=== PATIENT | female | born 1985 | race Caucasian/White ===

== ENCOUNTER 2017-10-19 20:08 | Emergency (ER) | payer MEDICAID ==
[2017-10-19 20:25] VITALS: BP 113/86
[2017-10-19] MEDS ORDERED: TETANUS/DIPHTHERIA/PERTUSSIS 0.5 ML SYRINGE IM ONE (21:18)
[2017-10-19] MEDS ORDERED: LIDOCAINE 1% 2 ML VIAL SUBQ STA (21:32)
--- NOTE | 2017-10-19 21:56 | ED Physician Documentation ---
PD HPI UPPER EXT INJURY - Stated complaint Stated Complaint: LT HAND LAC - Chief complaint Chief Complaint: Laceration - History obtained from History obtained from: Patient - History of Present Illness Location: Left, Hand Type of injury: Laceration Where injury occurred: Home Timing - onset: How many hours ago (1) Timing - duration: Hours (1) Pain level max: 3 Pain level now: 3 Improved by: Rest Worsened by: Moving, Palpating Associated symptoms: No: Weakness, Numbness, Tingling - Additonal information Additional information: Patient is right-handed. She was using her hands to push down on the trash tonight when she sliced her hand on a aluminum can. Unknown last tetanus. Review of Systems : denies: Now EGA Neurologic: denies: Numbness PD PAST MEDICAL HISTORY - Past Medical History Past Medical History: Yes Neuro: Headache/migraine Endocrine/Autoimmune: HyPOthyroidism - Past Surgical History Past Surgical History: No - Present Medications Home Medications: Ambulatory Orders Medication Instructions Recorded Confirmed Sertraline HCl [Zoloft] 100 mg PO DAILY 10/19/17 10/19/17 - Allergies Allergies/Adverse Reactions: Allergies Allergy/AdvReac Type Severity Reaction Status Date / Time No Known Drug Allergies Allergy Verified 10/19/17 20:26 - Social History Does the pt smoke?: No Smoking Status: Never smoker Does the pt drink ETOH?: No Does the pt have substance abuse?: Yes Substance Use and Type: Marijuana - Immunizations Immunizations are current?: Yes - POLST Patient has POLST: No PD ED PE NORMAL - Vitals Vital signs reviewed: Yes - General General: Alert and oriented X 3, No acute distress - Derm Derm: Warm and dry - Neuro Neuro: Alert and oriented X 3 - Psych Psych: Normal mood, Normal affect PD ED PE EXPANDED - Extremities LAVERNE UE/Hands Visual: 1 - laceration (2 cm, linear, clean. Neurovascularly intact. No tendon injury. No foreign body) Results - Vitals Vitals: Vital Signs - 24 hr 10/19/17 20:23 Temperature 36.3 C L Heart Rate 69 Respiratory 16 Rate Blood Pressure 113/86 H O2 Saturation 99 Oxygen O2 Source Room air Procedures - Laceration (location) L hand Length in cm: 2 Wound type: Linear, Into subcut fat, Clean Neurovascular status: Sensory intact, Motor intact, Vascular intact Tendon involvement: Tendon intact. No: Tendon Injury Anesthesia: Lidocaine 1% Wound Preparation: Irrigated copiously NS, Wound explored, To the base. No: FB identified, FB removed Skin layer closure: Nylon, Size #-0 - enter number (4), Sutures - enter # (3) Other: Patient tolerated well, No complications, Neurovascular intact, Tetanus booster given (tdap) Complexity: Simple PD MEDICAL DECISION MAKING - ED course Complexity details: considered differential, d/w patient ED course: Patient is a 32-year-old female with a laceration to left hand. This was repaired. Tolerated well. No tendon injury. Warnings of infection and instructions on wound care given at bedside. Also counseled on how to minimize scarring. Tdap given Patient counseled regarding signs and symptoms for which I believe and urgent re-evaluation would be necessary. Patient with good understanding of and agreement to plan and is comfortable going home at this time This document was made in part using voice recognition software. While efforts are made to proofread this document, sound alike and grammatical errors may occur. Departure - Departure Disposition: 01 Home, Self Care Clinical Impression: Hand laceration Qualifiers: Encounter type: initial encounter Foreign body presence: without foreign body Laterality: left Qualified Code(s): S61.412A - Laceration without foreign body of left hand, initial encounter Condition: Good Instructions: ED Laceration Hand Follow-Up: Karin Griffiths ARNP [Primary Care Provider] - Within 1 week (in 10-14 days for suture removal) Comments: The sutures will need to be removed in 10-14 days with your doctor. Keep the wound clean. Return if you notice redness swelling or drainage from the wound. Discharge Date/Time: 10/19/17 22:02
== END 2017-10-19 22:02 | disposition home or self-care (01) ==
LOC: ED 20:08
DX: S61.412A Laceration without foreign body of left hand, initial encounter (principal); W26.8XXA Contact with other sharp object(s), not elsewhere classified, initial encounter; Y93.E9 Activity, other interior property and clothing maintenance; Y92.009 Unspecified place in unspecified non-institutional (private) residence as the place of occurrence of the external cause; Z23 Encounter for immunization
CPT/HCPCS: 12001; 90471; 99282; 99283

== ENCOUNTER 2018-11-23 14:57 | Emergency (ER) | payer MEDICAID ==
[2018-11-23] MEDS ORDERED: SODIUM CHLORIDE 0.9% 1,000 ML IV ONE (15:24)
[2018-11-23] MEDS ORDERED: METOCLOPRAMIDE 10 MG/2 ML VIAL IVP STA (15:24)
[2018-11-23] MEDS ORDERED: diphenhydrAMINE INJ 50 MG/ML VIAL IVP STA (15:24)
--- NOTE | 2018-11-23 15:26 | ED Physician Documentation ---
PD HPI HEADACHE - Stated complaint Stated Complaint: MORA - Chief complaint Chief Complaint: Heent - History obtained from History obtained from: Patient - History of Present Illness Timing - onset: How many days ago (3) Timing - onset during: Other (The patient reports a gradual onset of a headache with her typical migrainous symptoms. The patient does report bilateral ear pre ssure and nasal pressure) Timing - details: Gradual onset Severity Comments: moderate Worst headache ever?: No: Worst headache ever? Location: Global Quality: Throbbing. No: Thunderclap, Stabbing, Tightness, Like head is exploding Associated symptoms: Nausea. No: Fever, Stiff neck, Weakness, Numbness, Syncope, Seizure Improved by: Nothing Worsened by: Noise Contributing factors: No: Anticoagulated, Possible carbon monoxide, Hypertension Similar symptoms before: No diagnosis Recently seen: Not recently seen Review of Systems Constitutional: denies: Fever, Fatigue Eyes: denies: Loss of vision Ears: reports: Ear pain Nose: reports: Congestion Throat: denies: Sore throat Cardiac: denies: Chest pain / pressure GI: denies: Abdominal Pain : denies: Dysuria Skin: denies: Rash Musculoskeletal: denies: Neck pain Neurologic: reports: Headache Immunocompromised: denies: Chemotherapy PD PAST MEDICAL HISTORY - Past Medical History Endocrine/Autoimmune: HyPOthyroidism - Past Surgical History Past Surgical History: No - Present Medications Home Medications: Ambulatory Orders Medication Instructions Recorded Confirmed Metoclopramide [Reglan] 10 mg PO Q6H PRN #30 tablet 11/23/18 Naproxen 500 mg PO BID PRN #60 tablet 11/23/18 Sumatriptan Succinate [Imitrex] 50 mg PO PRN PRN #20 tablet 11/23/18 - Allergies Allergies/Adverse Reactions: Allergies Allergy/AdvReac Type Severity Reaction Status Date / Time No Known Drug Allergies Allergy Verified 11/23/18 15:02 - Social History Does the pt smoke?: No Smoking Status: Never smoker Does the pt drink ETOH?: No Does the pt have substance abuse?: No - Immunizations Immunizations are current?: Yes - POLST Patient has POLST: No PD ED PE NORMAL - General General: Alert and oriented X 3, No acute distress - HEENT HEENT: Atraumatic, PERRL, EOMI, Ears normal - Neck Neck: Supple, no meningeal sign - Cardiac Cardiac: RRR, Strong equal pulses - Respiratory Respiratory: No respiratory distress, Clear bilaterally - Derm Derm: Normal color - Extremities Extremities: No deformity, Normal ROM s pain, No edema - Neuro Neuro: Alert and oriented X 3, lift 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 The patient's symptoms may be triggered by a viral process causing sinus pressure and ear pressure. Presently, there is no findings to suggest meningitis or a subarachnoid hemorrhage and currently I do not think any further workup is warranted at this time in the emergency department. The patient appears appropriate for discharge and ongoing outpatient management. I discussed warnings And recommended returning to the emergency department for any worsening or any concerns Departure - Departure Disposition: 01 Home, Self Care Clinical Impression: Viral URI Headache Qualifiers: Headache type: unspecified Headache chronicity pattern: acute headache Intractability: not intractable Qualified Code(s): R51 - Headache Condition: Good Instructions: ED Cephalgia Unspecified, ED URI Viral Prescriptions: Metoclopramide [Reglan] 10 mg PO Q6H PRN #30 tablet PRN Reason: Headache Naproxen 500 mg PO BID PRN #60 tablet PRN Reason: Pain Sumatriptan Succinate [Imitrex] 50 mg PO PRN PRN #20 tablet PRN Reason: Headache Comments: Please follow up with your primary care for a recheck Please return to the emergency department for worsening symptoms or any concerns
[2018-11-23 15:37] LABS: HCG UR QUAL NEGATIVE
[2018-11-23] MEDS ORDERED: KETOROLAC 15 MG/ML VIAL IVP STA (15:40)
[2018-11-23] MEDS ORDERED: SUMAtriptan 6 MG/0.5 ML VIAL SUBQ STA (15:40)
[2018-11-23 17:23] VITALS: BP 112/77
== END 2018-11-23 17:10 | disposition home or self-care (01) ==
LOC: ED 14:57
DX: J06.9 Acute upper respiratory infection, unspecified (principal); B97.89 Other viral agents as the cause of diseases classified elsewhere; R51 Headache
CPT/HCPCS: 81025; 96372; 96374; 96375; 99283; J1200; J2765

== ENCOUNTER 2019-05-09 15:06 | Outpatient (CLI) | payer MEDICAID ==
[2019-05-09 16:04] LABS: T4 (THYROXINE) 5.68 ug/dL (6.09-12.23)
== END 2019-05-09 15:07 | disposition home or self-care (01) ==
LOC: LAB 15:06
PROVIDERS: ATTEND Nurse Practitioner Obstetrics & Gynecology
DX: F32.9 Major depressive disorder, single episode, unspecified (principal)
CPT/HCPCS: 36415; 84436; 84443

== ENCOUNTER 2019-11-05 21:09 | Emergency (ER) | payer MEDICAID ==
--- NOTE | 2019-11-05 21:12 | ED Physician Documentation ---
History of Present Illness - Stated complaint Stated Complaint: ABD PX - History obtained from History obtained from: Patient (Patient is a 34-year-old female who presents with a chief complaint of right-sided abdominal pain with nausea and vomiting she denies diarrhea or constipation she denies fever chills or night sweats or any dysuria hematuria or any syncopal episodes she denies any vaginal bleeding or vaginal discharge she reports her last period was 2 weeks ago.She does report a history many years ago of a ruptured ovarian cyst.) Review of Systems Constitutional: reports: Reviewed and negative Eyes: reports: Reviewed and negative Ears: reports: Reviewed and negative Nose: reports: Reviewed and negative Throat: reports: Reviewed and negative Cardiac: reports: Reviewed and negative Respiratory: reports: Reviewed and negative GI: reports: Abdominal Pain, Reviewed and negative : reports: Reviewed and negative Skin: reports: Reviewed and negative Musculoskeletal: reports: Reviewed and negative Neurologic: reports: Reviewed and negative Psychiatric: reports: Reviewed and negative Endocrine: reports: Reviewed and negative Immunocompromised: reports: Reviewed and negative PD PAST MEDICAL HISTORY - Past Medical History Neuro: Headaches, Migraines Endocrine/Autoimmune: HyPOthyroidism - Past Surgical History Past Surgical History: No - Present Medications Home Medications: Ambulatory Orders Medication Instructions Recorded Confirmed Metoclopramide [Reglan] 10 mg PO Q6H PRN #30 tablet 11/23/18 Naproxen 500 mg PO BID PRN #60 tablet 11/23/18 Sumatriptan Succinate [Imitrex] 50 mg PO PRN PRN #20 tablet 11/23/18 - Allergies Allergies/Adverse Reactions: Allergies Allergy/AdvReac Type Severity Reaction Status Date / Time No Known Drug Allergies Allergy Verified 11/05/19 21:14 - Social History Does the pt smoke?: No Smoking Status: Never smoker Does the pt drink ETOH?: No Does the pt have substance abuse?: No - Immunizations Immunizations are current?: Yes - POLST Patient has POLST: No PD ED PE NORMAL - Vitals Vital signs reviewed: Yes - General General: Alert and oriented X 3, No acute distress - HEENT HEENT: PERRL - Neck Neck: Supple, no meningeal sign - Cardiac Cardiac: RRR, No murmur - Respiratory Respiratory: Clear bilaterally - Abdomen Abdomen: Other (The abdomen is tenderness in the right side diffusely there is no pinpoint tenderness she is got a negative Guerra sign negative CVA tenderness negative McBurney sign. There is no midline abdominal pulsatile mass the abdomen is soft nondistended with normoactive bowel sounds no guarding or rebound and hepatosplenomegaly no CVA tenderness.) - Female Female : Deferred - Derm Derm: Warm and dry - Extremities Extremities: No deformity - Neuro Neuro: Alert and oriented X 3 - Psych Psych: Normal mood, Normal affect Results - Vitals Vitals: Vital Signs - 24 hr 11/05/19 21:14 Temperature 36.7 C Heart Rate 105 H Respiratory 18 Rate Blood Pressure 110/77 O2 Saturation 99 Oxygen O2 Source Room air - Labs Labs: Laboratory Tests 11/05/19 11/05/19 11/05/19 21:32 21:32 21:32 WBC 13.3 H RBC 4.79 Hgb 15.1 Hct 43.9 MCV 91.6 MCH 31.5 H MCHC 34.4 RDW 11.9 L Plt Count 205 MPV 10.3 Neut # (Auto) 9.7 H Lymph # (Auto) 2.6 [place] # (Auto) 0.7 Eos # (Auto) 0.2 Baso # (Auto) 0.1 Absolute Nucleated RBC 0.00 Nucleated RBC % 0.0 PT 13.2 H INR 1.2 APTT 30.3 Sodium 137 Potassium 2.9 L Chloride 100 L Carbon Dioxide 23 Anion Gap 14.0 H BUN 14 Creatinine 0.8 Estimated GFR (MDRD) 83 L Glucose 129 H Calcium 9.4 Total Bilirubin 0.8 AST 18 ALT 14 Alkaline Phosphatase 50 Total Protein 7.3 Albumin 4.6 Globulin 2.7 Albumin/Globulin Ratio 1.7 Lipase 45 Urine Color Urine Clarity Urine pH Ur Specific [place] Urine Protein Urine Glucose (UA) Urine Ketones Urine Occult Blood Urine Nitrite Urine Bilirubin Urine Urobilinogen Ur Leukocyte Esterase Urine RBC Urine WBC Ur Squamous Epith Cells Urine Bacteria Ur Microscopic Review Urine Culture Comments Urine HCG, Qual 11/05/19 11/05/19 21:37 21:37 WBC RBC Hgb Hct MCV MCH MCHC RDW Plt Count MPV Neut # (Auto) Lymph # (Auto) [place] # (Auto) Eos # (Auto) Baso # (Auto) Absolute Nucleated RBC Nucleated RBC % PT INR APTT Sodium Potassium Chloride Carbon Dioxide Anion Gap BUN Creatinine Estimated GFR (MDRD) Glucose Calcium Total Bilirubin AST ALT Alkaline Phosphatase Total Protein Albumin Globulin Albumin/Globulin Ratio Lipase Urine Color YELLOW Urine Clarity CLEAR Urine pH 6.0 Ur Specific [place] 1.025 1.025 Urine Protein NEGATIVE Urine Glucose (UA) NEGATIVE Urine Ketones TRACE Urine Occult Blood SMALL H Urine Nitrite NEGATIVE Urine Bilirubin NEGATIVE Urine Urobilinogen 0.2 (NORMAL) Ur Leukocyte Esterase NEGATIVE Urine RBC 0-5 Urine WBC 0-3 Ur Squamous Epith Cells MOD Squamous H Urine Bacteria Moderate H Ur Microscopic Review INDICATED Urine Culture Comments NOT INDICATED Urine HCG, Qual NEGATIVE PD MEDICAL DECISION MAKING - ED course Complexity details: re-evaluated patient (00:11 Pain is resolved at this time patient would like to be discharged home.), d/w patient Departure - Departure Disposition: 01 Home, Self Care Clinical Impression: Ovarian cyst Qualifiers: Laterality: right Qualified Code(s): N83.201 - Unspecified ovarian cyst, right side Condition: Good Instructions: Cysts Ovarian Follow-Up: YOUR,DOCTOR [Other]
[2019-11-05] MEDS ORDERED: ONDANSETRON 4 MG/2 ML VIAL IVP STA (21:28)
[2019-11-05] MEDS ORDERED: MORPHINE 2 MG/ML CARPUJECT IVP STA (21:28)
[2019-11-05] MEDS ORDERED: SODIUM CHLORIDE 0.9% 1,000 ML IV ONE (21:28)
[2019-11-05 21:38] LABS: BASOPHILS # (AUTO) 0.1 10^3/uL (0.0-0.1); BASOPHILS % (AUTO) 0.5 %; EOSINOPHILS # (AUTO) 0.2 10^3/uL (0.0-0.7); EOSINOPHILS % (AUTO) 1.5 %; HGB - HEMOGLOBIN 15.1 g/dL (12.0-16.0); LYMPHOCYTES # (AUTO) 2.6 10^3/uL (1.5-3.5); LYMPHOCYTES % (AUTO) 19.7 %; MEAN CORPUSCULAR HEMOGLOBIN 31.5 pg (27.0-31.0); MEAN CORPUSCULAR HGB CONC 34.4 g/dL (32.0-36.0); MEAN CORPUSCULAR VOLUME 91.6 fL (81.0-99.0); MEAN PLATELET VOLUME 10.3 fL (7.9-10.8); MONOCYTES # (AUTO) 0.7 10^3/uL (0.0-1.0); MONOCYTES % (AUTO) 5.5 %; NEUTROPHILS # (AUTO) 9.7 10^3/uL (1.5-6.6); NEUTROPHILS % (AUTO) 72.3 %; PLT - PLATELET COUNT 205 10^3/uL (130-450); RED BLOOD COUNT 4.79 10^6/uL (4.20-5.40); RED CELL DISTRIBUTION WIDTH 11.9 % (12.0-15.0); WHITE BLOOD COUNT 13.3 x10^3/uL (4.8-10.8)
[2019-11-05 21:41] LABS: GLUCOSE, URINE (UA) NEGATIVE (NEGATIVE); KETONES,URINE (UA) TRACE mg/dL (NEGATIVE); LEUKOCYTE ESTERASE, URINE NEGATIVE (NEGATIVE); NITRITE,URINE NEGATIVE (NEGATIVE); OCCULT BLOOD,URINE SMALL (NEGATIVE); PROTEIN,URINE NEGATIVE (NEGATIVE); UROBILINOGEN,URINE 0.2 (NORMAL) E.U./dL (NORMAL)
[2019-11-05 21:43] LABS: INR 1.2 (0.8-1.2); PT - PROTHROMBIN TIME 13.2 secs (9.9-12.6)
[2019-11-05 21:46] LABS: BILIRUBIN,URINE NEGATIVE (NEGATIVE); CLARITY,URINE CLEAR (CLEAR); ICTOTEST,URINE NEGATIVE
[2019-11-05 21:47] LABS: HCG UR QUAL NEGATIVE
[2019-11-05 21:48] LABS: BACTERIA,URINE Moderate /HPF (None Seen); RBC,URINE 0-5 /HPF (0-5); SQUAMOUS EPITHELIAL CELL,UR MOD Squamous (<= Few)
[2019-11-05 21:51] LABS: PARTIAL THROMBOPLASTIN TIME 30.3 secs (24.9-33.3)
[2019-11-05 21:56] LABS: ALBUMIN 4.6 g/dL (3.2-5.5); ALBUMIN/GLOBULIN RATIO 1.7 (1.0-2.2); BILIRUBIN,TOTAL 0.8 mg/dL (0.2-1.0); CALCIUM 9.4 mg/dL (8.5-10.3); CREATININE 0.8 mg/dL (0.4-1.0); TOTAL PROTEIN 7.3 g/dL (6.7-8.2)
[2019-11-05] MEDS ORDERED: IOVERSOL 320 100 ML VIAL IVP ONE ×2 (22:51→23:15)
--- NOTE | 2019-11-05 23:45 | CT Report ---
Reason: abd pain Procedure Date: 11/05/2019 Accession Number: [id number] / [id number] Procedure: CT - Abdomen/Pelvis W CPT Code: Final Report FULL RESULT: EXAM: CT ABDOMEN AND PELVIS EXAM DATE: 11/05/2019 11:13 PM. CLINICAL HISTORY: Sudden onset mid right abdominal pain COMPARISONS: None. TECHNIQUE: Routine helical CT imaging was performed through the abdomen and pelvis. IV contrast: OPTI 320 100ML. Enteric contrast: No. Reconstructions: Coronal and sagittal. In accordance with CT protocol optimization, one or more of the following dose reduction techniques were utilized for this exam: automated exposure control, adjustment of mA and/or KV based on patient size, or use of iterative reconstructive technique. FINDINGS: Lung bases are clear. The visible heart is normal in size. The liver, gallbladder, spleen, pancreas, and adrenal glands are within normal limits. The kidneys enhance symmetrically. There is no hydronephrosis or renal mass. The intestines are normal in caliber and position. Hyperattenuating material within the proximal appendix likely represents hyperdense stool. The appendix is otherwise normal. There is no evidence of bowel obstruction, free intraperitoneal air, or ascites. No lymphadenopathy is seen. The abdominal aorta is normal in course and caliber. The bladder is normal. The uterus and adnexal structures are within normal limits. An involuting corpus luteum cyst is seen on the right. Trace free pelvic fluid is likely physiologic. No acute osseous abnormality is seen. There are no suspicious lytic or blastic lesions. The visible thoracolumbar spinal alignment is maintained. IMPRESSION: 1. No acute intra-abdominal abnormalities. 2. Hyperattenuating stool is seen within the proximal appendix. The appendix is otherwise normal and without evidence of inflammation. 3. Involuting right corpus luteum cyst. RADIA
[2019-11-06 00:27] VITALS: BP 109/62
== END 2019-11-06 00:28 | disposition home or self-care (01) ==
LOC: ED 21:09
DX: N83.201 Unspecified ovarian cyst, right side (principal)
CPT/HCPCS: 36415; 74177; 80053; 81001; 81025; 83690; 85025; 85610; 85730; 96361; 96374; 96375; 99283; 99284; Q9967; 81003; 87086

== ENCOUNTER 2019-11-08 16:03 | Emergency (ER) | payer MEDICAID ==
[2019-11-08] MEDS ORDERED: KETOROLAC 15 MG/ML VIAL IVP STA (16:25)
[2019-11-08] MEDS ORDERED: diphenhydrAMINE INJ 50 MG/ML VIAL IVP STA (16:25)
[2019-11-08] MEDS ORDERED: METOCLOPRAMIDE 10 MG/2 ML VIAL IVP STA (16:25)
--- NOTE | 2019-11-08 16:27 | ED Physician Documentation ---
PD HPI HEADACHE - Stated complaint Stated Complaint: RT SIDE PX, NAUSEA - Chief complaint Chief Complaint: Neuro - History obtained from History obtained from: Patient - History of Present Illness Timing - onset: Other (34-year-old woman with history of migraines and PCOS. She was seen here on Tuesday night for abdominal pain, she had a white count of 13, a CT without appendicitis. She was diagnosed with an ovarian cyst. After that she developed a gradual onset left-sided headache that feels similar to prior migraines but is much longer lasting and the medications she uses at home for headaches such as Excedrin have been unhelpful. Her abdominal pain is gone. She does have vomiting and diarrhea.) Review of Systems Ten Systems: 10 systems reviewed and negative Constitutional: denies: Fever, Chills Cardiac: denies: Chest pain / pressure, Palpitations Respiratory: denies: Dyspnea, Cough GI: reports: Nausea, Vomiting, Diarrhea. 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 HEENT: None Psych: Depression Musculoskeletal: None Derm: None Other Past Medical History: ovarian cysts - Past Surgical History Past Surgical History: No - Present Medications Home Medications: Ambulatory Orders Medication Instructions Recorded Confirmed No Known Home Medications 11/08/19 11/08/19 - Allergies Allergies/Adverse Reactions: Allergies Allergy/AdvReac Type Severity Reaction Status Date / Time No Known Drug Allergies Allergy Verified 11/08/19 16:12 - Social History Does the pt smoke?: No Smoking Status: Never smoker Does the pt drink ETOH?: No Does the pt have substance abuse?: No - Immunizations Immunizations are current?: Yes - POLST Patient has POLST: No PD ED PE NORMAL - Vitals Vital signs reviewed: Yes (She does have hypertension) - General General: Alert and oriented X 3 (Appears comfortable) - HEENT HEENT: PERRL, EOMI - Neck Neck: Supple, no meningeal sign (Supple neck) - Cardiac Cardiac: RRR, No murmur - Respiratory Respiratory: No respiratory distress, Clear bilaterally - Abdomen Abdomen: Non tender - Back Back: No CVA TTP, No spinal TTP - Derm Derm: Normal color, Warm and dry - Extremities Extremities: No edema, No calf tenderness / cord - Neuro Neuro: Alert and oriented X 3, Normal speech Results - Vitals Vitals: Vital Signs - 24 hr 11/08/19 11/08/19 16:07 16:42 Temperature 36.8 C 37.4 C Heart Rate 99 68 Respiratory 18 17 Rate Blood Pressure 170/104 H 124/68 O2 Saturation 100 100 Oxygen O2 Source Room air - Labs Labs: Laboratory Tests 11/08/19 11/08/19 16:35 16:35 WBC 8.2 RBC 4.48 Hgb 14.0 Hct 41.8 MCV 93.3 MCH 31.3 H MCHC 33.5 RDW 11.9 L Plt Count 185 MPV 10.5 Neut # (Auto) 6.2 Lymph # (Auto) 1.4 L [place] # (Auto) 0.4 Eos # (Auto) 0.1 Baso # (Auto) 0.0 Absolute Nucleated RBC 0.00 Nucleated RBC % 0.0 Sodium 136 Potassium 3.4 L Chloride 104 Carbon Dioxide 24 Anion Gap 8.0 BUN 9 Creatinine 0.6 Estimated GFR (MDRD) 116 Glucose 96 Calcium 8.7 PD MEDICAL DECISION MAKING - ED course ED course: 34-year-old woman seen on Tuesday night for abdominal pain which is now gone but now a headache, gradual in onset and otherwise similar to migraines except that it has not resolved with her usual treatments and is longer lasting. She is administered IV Toradol, Reglan, and Benadryl. After the above interventions her headache was gone, her neck remained supple. Departure - Departure Disposition: Home, Self Care Clinical Impression: Migraine Qualifiers: Migraine type: without aura Status migrainosus presence: with status migrainosus Intractability: not intractable Qualified Code(s): G43.001 - Migraine without aura, not intractable, with status migrainosus Condition: Good Record reviewed to determine appropriate education?: Yes Instructions: ED Headache Migraine Comments: Call your doctor to arrange a follow-up appointment, make the next available appointment. In the interim, return anytime if worse or if new symptoms develop.
[2019-11-08 16:44] VITALS: BP 124/68
[2019-11-08 16:46] LABS: BASOPHILS % (AUTO) 0.5 %; EOSINOPHILS # (AUTO) 0.1 10^3/uL (0.0-0.7); EOSINOPHILS % (AUTO) 1.3 %; LYMPHOCYTES # (AUTO) 1.4 10^3/uL (1.5-3.5); LYMPHOCYTES % (AUTO) 17.1 %; MEAN CORPUSCULAR HEMOGLOBIN 31.3 pg (27.0-31.0); MEAN CORPUSCULAR HGB CONC 33.5 g/dL (32.0-36.0); MEAN CORPUSCULAR VOLUME 93.3 fL (81.0-99.0); MEAN PLATELET VOLUME 10.5 fL (7.9-10.8); MONOCYTES # (AUTO) 0.4 10^3/uL (0.0-1.0); MONOCYTES % (AUTO) 4.4 %; NEUTROPHILS # (AUTO) 6.2 10^3/uL (1.5-6.6); NEUTROPHILS % (AUTO) 76.5 %; PLT - PLATELET COUNT 185 10^3/uL (130-450); RED BLOOD COUNT 4.48 10^6/uL (4.20-5.40); RED CELL DISTRIBUTION WIDTH 11.9 % (12.0-15.0); WHITE BLOOD COUNT 8.2 x10^3/uL (4.8-10.8)
[2019-11-08 16:53] LABS: CALCIUM 8.7 mg/dL (8.5-10.3); CREATININE 0.6 mg/dL (0.4-1.0)
== END 2019-11-08 17:24 | disposition home or self-care (01) ==
LOC: ED 16:03
DX: G43.001 Migraine without aura, not intractable, with status migrainosus (principal); R19.7 Diarrhea, unspecified; I10 Essential (primary) hypertension; E28.2 Polycystic ovarian syndrome
CPT/HCPCS: 36415; 80048; 85025; 96374; 96375; 99283; 99284; J1200; J2765

== ENCOUNTER 2019-11-09 20:46 | Outpatient (CLI) | payer MEDICAID ==
--- NOTE | 2019-11-09 22:35 | Ultrasound Report ---
Reason: RUQ ABDOMINAL PAIN Procedure Date: 11/09/2019 Accession Number: [id number] / [id number] Procedure: US - Pelvic w/Transvaginal CPT Code: Final Report FULL RESULT: EXAM: PELVIC ULTRASOUND EXAM DATE: 11/09/2019 09:40 PM. CLINICAL HISTORY: Right upper quadrant ABDOMINAL PAIN. COMPARISON: ABDOMEN COMPLETE 11/09/2019 9:26 PM ABDOMEN/PELVIS W/ 11/05/2019 11:07 PM. TECHNIQUE: Realtime transabdominal pelvic scan performed to identify the uterus and adnexa and as an overview of other pelvic structures, followed by transvaginal scan to provide greater detail of the uterus and adnexa, with static image documentation. FINDINGS: Uterus: 9.1 x 3.8 x 6 cm, volume 108.1 cc. Anteverted position. Normal overall size and echotexture. Masses: None. Endometrium: 8 mm. Normal. Cervix: Unremarkable. Right Ovary: 3.9 x 2 x 2.1 cm, volume 8.4 cc. Normal echotexture and blood flow. Small echogenic focus in the right ovary, most likely a collapsed corpus luteum. Left Ovary: 2.9 x 1.6 x 2.5 cm, volume 6.2 cc. Normal echotexture and blood flow. Free Fluid: Trace free fluid seen in the posterior cul-de-sac. IMPRESSION: 1. Trace free fluid seen in the posterior cul-de-sac. The uterus and ovaries appear within normal limits. LENARD The call report notification system was initiated by Dr. Nasrin Yuan at 10:35 PM on 11/09/2019. The above call report findings were discussed with Camille Tafoya by Dr. Nasrin Yuan at 10:38 PM on 11/09/2019.
--- NOTE | 2019-11-09 22:38 | Ultrasound Report ---
Reason: RUQ ABDOMINAL PAIN Procedure Date: 11/09/2019 Accession Number: [id number] / [id number] Procedure: US - Abdomen Complete CPT Code: Final Report FULL RESULT: EXAM: ABDOMEN ULTRASOUND EXAM DATE: 11/09/2019 10:16 PM. CLINICAL HISTORY: Right upper quadrant abdominal pain. COMPARISON: ABDOMEN/PELVIS W/ 11/05/2019 11:07 PM. TECHNIQUE: Real-time scanning was performed with static images obtained. FINDINGS: Liver: Mild liver hyperechogenicity is seen with mild fatty liver. 16 cm. Main portal vein flow: Hepatopetal. Gallbladder: Normal. No stones, wall thickening, or sonographic Guerra's sign. Biliary System: Common bile duct measures 4 mm. No intrahepatic or extrahepatic ductal dilatation. Pancreas: Visualized portion is unremarkable. Kidneys: Right: 11.1 cm longitudinally. Normal. No contour-deforming mass, stones, or hydronephrosis. Left: 11.9 cm longitudinally. Normal. No contour-deforming mass, stones, or hydronephrosis. Spleen: 12.6 cm. Prominent. Aorta and Inferior Vena Cava: Visualized portions appear unremarkable. IMPRESSION: 1. Mild fatty liver suspected. No acute findings are seen. See above. RADIA The call report notification system was initiated by Dr. Nasrin Yuan at 10:37 PM on 11/09/2019. The above call report findings were discussed with Camille Tafoya by Dr. Nasrin Yuan at 10:38 PM on 11/09/2019.
== END 2019-11-09 20:47 | disposition home or self-care (01) ==
LOC: DI 20:46
PROVIDERS: ATTEND Nurse Practitioner Obstetrics & Gynecology
DX: R10.11 Right upper quadrant pain (principal)
CPT/HCPCS: 76700; 76830; 76856

== ENCOUNTER 2020-07-29 16:45 | Outpatient (CLI) | payer MEDICAID | END 2020-07-29 23:59 | LOC: LAB.R 16:45 | PROVIDERS: ATTEND Pediatrics | DX: R05 Cough (principal); Z20.828 Contact with and (suspected) exposure to other viral communicable diseases ==

== ENCOUNTER 2020-09-05 08:00 | Outpatient (CLI) | payer MEDICAID ==
[2020-09-05 13:02] LABS: BASOPHILS % (AUTO) 0.4 %; EOSINOPHILS # (AUTO) 0.3 10^3/uL (0.0-0.7); EOSINOPHILS % (AUTO) 3.2 %; LYMPHOCYTES % (AUTO) 25.2 %; MEAN CORPUSCULAR HEMOGLOBIN 31.1 pg (27.0-31.0); MEAN CORPUSCULAR HGB CONC 32.6 g/dL (32.0-36.0); MEAN CORPUSCULAR VOLUME 95.2 fL (81.0-99.0); MEAN PLATELET VOLUME 10.9 fL (7.9-10.8); MONOCYTES # (AUTO) 0.4 10^3/uL (0.0-1.0); MONOCYTES % (AUTO) 5.5 %; NEUTROPHILS # (AUTO) 5.1 10^3/uL (1.5-6.6); NEUTROPHILS % (AUTO) 65.4 %; PLT - PLATELET COUNT 199 10^3/uL (130-450); RED BLOOD COUNT 4.83 10^6/uL (4.20-5.40); RED CELL DISTRIBUTION WIDTH 12.3 % (12.0-15.0); WHITE BLOOD COUNT 7.8 x10^3/uL (4.8-10.8)
[2020-09-05 13:19] LABS: ALBUMIN 4.4 g/dL (3.2-5.5); ALBUMIN/GLOBULIN RATIO 1.6 (1.0-2.2); BILIRUBIN,TOTAL 0.9 mg/dL (0.2-1.0); CREATININE 0.7 mg/dL (0.4-1.0); TOTAL PROTEIN 7.2 g/dL (6.7-8.2)
[2020-09-05 13:30] LABS: THYROID STIMULATING HORMONE 1.71 uIU/mL (0.34-5.60)
[2020-09-05 13:32] LABS: FREE T3 3.33 pg/mL (2.5-3.9)
[2020-09-05 13:33] LABS: FREE T4 (FREE THYROXINE) 0.7 ng/dL (0.58-1.64)
== END 2020-09-05 23:59 | disposition home or self-care (01) ==
LOC: LAB.WCP 08:00
PROVIDERS: ATTEND Nurse Practitioner Family
DX: F41.8 Other specified anxiety disorders (principal); E03.9 Hypothyroidism, unspecified
CPT/HCPCS: 36415; 80050; 84439; 84481

== ENCOUNTER 2021-02-14 11:35 | Emergency (ER) | payer MEDICAID ==
[2021-02-14] MEDS ORDERED: HYDROmorphone 1 MG/ML CARPUJECT IM STA (11:43)
[2021-02-14] MEDS ORDERED: BUFFERED LIDOCAINE 10 ML SYRINGE SUBQ STA (11:43)
[2021-02-14] MEDS ORDERED: BACITRACIN ZINC OINT 1 PACKET TOP STA (11:43)
--- NOTE | 2021-02-14 11:46 | ED Physician Documentation ---
History of Present Illness - Stated complaint Stated Complaint: L TOE INJ - History obtained from History obtained from: Patient - Additonal information Additional information: 35-year-old female presents emergency department for evaluation of the left great toe injury. She unfortunately ran her great toe over with an electric lawnmower and has a deep avulsion injury as well as laceration to the distal nail and nailbed itself. Last tetanus 2018. Review of Systems Constitutional: denies: Fever, Chills Eyes: reports: Reviewed and negative Ears: reports: Reviewed and negative Nose: reports: Reviewed and negative Throat: reports: Reviewed and negative Cardiac: reports: Reviewed and negative Respiratory: reports: Reviewed and negative GI: reports: Reviewed and negative : reports: Reviewed and negative Skin: reports: Laceration (s) (left great toe) Musculoskeletal: reports: Reviewed and negative PD PAST MEDICAL HISTORY - Past Medical History Cardiovascular: None Respiratory: None Neuro: Headaches, Migraines Endocrine/Autoimmune: HyPOthyroidism GI: None 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 : None HEENT: None Psych: Depression Musculoskeletal: None Derm: None - Past Surgical History Past Surgical History: No - Present Medications Home Medications: Ambulatory Orders Medication Instructions Recorded Confirmed HYDROcod/ACETAM 5/325 [[place] 5/325] 1 - 2 tablet PO Q6H PRN #20 tablet 02/14/21 Ibuprofen [Motrin] 600 mg PO Q6H PRN #30 tab 02/14/21 cephALEXin [Keflex] 500 mg PO Q6H #28 02/14/21 - Allergies Allergies/Adverse Reactions: Allergies Allergy/AdvReac Type Severity Reaction Status Date / Time doxycycline Allergy Nausea Verified 02/14/21 11:47 - Social History Does the pt smoke?: No Smoking Status: Never smoker Does the pt drink ETOH?: No Does the pt have substance abuse?: No - Immunizations Immunizations are current?: Yes - POLST Patient has POLST: No PD ED PE EXPANDED - General General: Alert, In Pain - Extremities Extremities: Left foot (great toe with avulsion injru distally. nail is missing about 60% with avulsion to nail bed itself and distal tip laceration. bleedign controlled. 2+ DP pulse. Brisk cap refill) Results - Vitals Vitals: Vital Signs - 24 hr 02/14/21 02/14/21 11:43 11:56 Temperature 36.0 C L Heart Rate 80 93 Respiratory 20 16 Rate Blood Pressure 126/68 126/68 O2 Saturation 100 100 Oxygen O2 Source Room air - Rads (name of study) left toe XR Radiology: Final report received (Comminuted fractures of the distal aspect of the distal phalanx of the great toe with associated soft tissue injury.) Procedures - Laceration (location) left great toe Length in cm: 4 Wound type: Irregular, Into muscle, Heavily Contaminated, Exposure of bone Neurovascular status: Sensory intact, Motor intact Tendon involvement: Tendon intact Anesthesia: Lidocaine 1% Wound preparation: Chlorhexadine, Irrigated copiously NS, Debrided moderately, Wound explored, To the base, debridement of wound edges (traumatic laceration /avulsion), Multiple flaps aligned, Extensive undermining Skin layer closure: Interrupted, Size #-0 - enter number (3-0 and 4-0 sutures), Sutures - enter # (6) Other: Patient tolerated well, No complications, Neurovascular intact, Tetanus UTD PD MEDICAL DECISION MAKING - ED course Complexity details: reviewed results, d/w patient ED course: 35-year-old female presents the emergency department for evaluation in a complex and complicated left great toe injury in which she accidentally ran over her great toe with an electric lawnmower while wearing tennis shoes. She does have an open comminuted distal phalanx fracture. This wound was quite difficult to close she had about 60% avulsion of her nail. In addition to that it took multiple sutures to approximate the wound to closure. Patient was given ceftriaxone here in the emergency department and will be discharged with a 7-day prescription of Keflex. Will be discharged with a prescription for hydrocodone as well. She was given postop shoe and crutches. Patient was advised that if she is uncomfortable doing the dressing changes at home tomorrow to return to the ER for a dressing change. I have also asked her to make a follow-up appointment with the orthopedics clinic for follow-up. Tejal lyons worrisome return precautions were discussed for concerns of wound infection. Departure - Departure Disposition: 01 Home, Self Care Clinical Impression: Open displaced fracture of phalanx of toe of left foot Qualifiers: Encounter type: initial encounter Toe: great toe Phalanx: distal Qualified Code(s): S92.422B - Displaced fracture of distal phalanx of left great toe, initial encounter for open fracture Nailbed laceration, toe Qualifiers: Encounter type: initial encounter Qualified Code(s): S91.219A - Laceration without foreign body of unspecified toe(s) with damage to nail, initial encounter Toe laceration Qualifiers: Encounter type: initial encounter Toe: great toe Damage to nail status: with damage Foreign body presence: without foreign body Laterality: left Qualified Code(s): S91.212A - Laceration without foreign body of left great toe with damage to nail, initial encounter Avulsed toenail Qualifiers: Encounter type: initial encounter Qualified Code(s): S91.209A - Unspecified open wound of unspecified toe(s) with damage to nail, initial encounter Condition: Stable Record reviewed to determine appropriate education?: Yes Follow-Up: [facility] [Provider Group] Prescriptions: cephALEXin [Keflex] 500 mg PO Q6H #28 Ibuprofen [Motrin] 600 mg PO Q6H PRN #30 tab PRN Reason: Pain HYDROcod/ACETAM 5/325 [[place] 5/325] 1 - 2 tablet PO Q6H PRN #20 tablet PRN Reason: Pain Comments: Talia I am so sorry had the injury to your toe today. Unfortunately you did sustain a rather complicated laceration and avulsion of the toe, nail bed as well as a fracture of the distal phalanx. Because this is considered an open fracture you were given antibiotics here in the emergency department. It is important you fill the prescription for the antibiotics and begin taking 4 times a day for the next week. I have also prescribed hydrocodone to help manage pain. Please take the ibuprofen first and then the IBU hydrocodone only if the pain is not well controlled. Use this medication cautiously it is addictive and makes you unsafe to drive. In 24 hours you may gently remove your dressing. If you would like to come to the emergency department for a wound check please feel free to do so I will be working tomorrow. After removing the dressing gently wash with warm soap and water pat dry, then apply the antibiotic ointment, the impregnated yellow gauze, then the nonstick dressing and a simple bandage. Your wound is at risk for infection and poor healing. If you have any concerns of infection return immediately to the emergency department. It is important that you schedule an appointment with orthopedics for follow-up within the next week. I do encourage you to wear the postop shoe at all times. Avoid placing direct weight on the ball of your foot and great toe therefore use the crutches as provided.
[2021-02-14] MEDS ORDERED: LIDOCAINE 1% 2 ML VIAL MC ONE (11:55)
[2021-02-14] MEDS ORDERED: cefTRIAXone 1 GM VIAL IM STA (11:55)
--- NOTE | 2021-02-14 12:08 | XRAY Report ---
PROCEDURE: Toe(s) LT INDICATIONS: great toe injury vs lawnmower TECHNIQUE: 3 views of the left great toe(s) acquired. COMPARISON: None FINDINGS: Bones: There is a comminuted fracture involving the distal aspect of the distal phalanx of the great toe. No intra-articular involvement is seen. No additional fracture lines can be seen. Note is made of a sesamoid bone along the plantar aspect of the interphalangeal joint of the great toe. No suspicious bony lesions. Soft tissues: There is associated soft tissue injury. IMPRESSION: Comminuted fractures of the distal aspect of the distal phalanx of the great toe, with associated sof t tissue injury. Reviewed by: Steven Pisano MD on 02/14/2021 11:07 AM KYLE Approved by: Steven Pisano MD on 02/14/2021 11:07 AM KYLE Station ID: [id number]
[2021-02-14 13:06] VITALS: BP 118/72
== END 2021-02-14 13:20 | disposition home or self-care (01) ==
LOC: ED 11:35
DX: S92.422B Displaced fracture of distal phalanx of left great toe, initial encounter for open fracture (principal); W28.XXXA Contact with powered lawn mower, initial encounter; Y93.H2 Activity, gardening and landscaping
CPT/HCPCS: 12042; 73660; 96372; 99283; A9270; J1170

== ENCOUNTER 2021-02-15 12:33 | Emergency (ER) | payer MEDICAID ==
--- NOTE | 2021-02-15 12:39 | ED Physician Documentation ---
History of Present Illness - Stated complaint Stated Complaint: WOUND CHECK - Additonal information Additional information: 35-year-old female presents emergency department for evaluation of a wound check on her Left great toe injury. She unfortunately ran over her foot with an e lectric lawnmower while wearing tennis shoes yesterday. She had a comminuted open distal phalanx fracture with moderate loss of tissue and nail. Closure of the wound was quite complicated. Patient did call the emergency department last night and reported that her dressing had bled through. I offered her to return to the ER last night or to return today for wound check and she presents now. She was discharged yesterday with prescription for cephalexin which she has filled as well as a moderate amount of hydrocodone. Her tetanus was updated. Review of Systems Constitutional: reports: Reviewed and negative Eyes: reports: Reviewed and negative Nose: reports: Reviewed and negative Throat: reports: Reviewed and negative Cardiac: reports: Reviewed and negative Respiratory: reports: Reviewed and negative Skin: reports: Laceration (s) (Left great toe open comminuted fracture with avulsion of skin and loss of tissue.) PD PAST MEDICAL HISTORY - Past Medical History Cardiovascular: None Respiratory: None Neuro: Headaches, Migraines Endocrine/Autoimmune: HyPOthyroidism GI: None [employer]: Other : None HEENT: None Psych: Depression Musculoskeletal: None Derm: None - Past Surgical History Past Surgical History: No - Present Medications Home Medications: Ambulatory Orders Medication Instructions Recorded Confirmed HYDROcod/ACETAM 5/325 [[place] 5/325] 1 - 2 tablet PO Q6H PRN #20 tablet 02/14/21 Ibuprofen [Motrin] 600 mg PO Q6H PRN #30 tab 02/14/21 cephALEXin [Keflex] 500 mg PO Q6H #28 02/14/21 - Allergies Allergies/Adverse Reactions: Allergies Allergy/AdvReac Type Severity Reaction Status Date / Time doxycycline Allergy Nausea Verified 02/15/21 12:43 - Social History Does the pt smoke?: No Smoking Status: Never smoker Does the pt drink ETOH?: No Does the pt have substance abuse?: No - Immunizations Immunizations are current?: Yes - POLST Patient has POLST: No PD ED PE EXPANDED - Extremities Extremities: Left toe(s) (Left great toe shows good wound approximation with minimal bleeding. Toe itself is generally tender with some diminished sensation. The nail bed and suture lines are intact. No significant erythema or drainage.) Results - Vitals Vitals: Vital Signs - 24 hr 02/15/21 12:43 Temperature 36.6 C Heart Rate 83 Respiratory 16 Rate Blood Pressure 144/84 H O2 Saturation 97 Oxygen O2 Source Room air PD MEDICAL DECISION MAKING - ED course Complexity details: re-evaluated patient, d/w patient ED course: 35-year-old female presents to the emergency department for evaluation of a complex left great toe wound after cutting her toe with an electric lawnmower yesterday evening. She did have a comminuted open fracture of the distal phalanx of this toe. On exam the wound presents as we would expect. There was some mild maceration of the skin secondary to moisture but once allowed to dry appeared intact and healthy. The toe was warm with brisk cap refill. Suture lines are intact. Patient is advised to continue follow-up with orthopedics as an outpatient and complete her full course of antibiotics. Dressing changes with Xeroform to the nailbed and suture lines. Emergent return precautions discussed. Departure - Departure Disposition: 01 Home, Self Care Clinical Impression: Visit for wound check Condition: Stable Record reviewed to determine appropriate education?: Yes Comments: Talia the wound looks fantastic. It is important that most of the skin on the toe be allowed to remain dry. Place a thin amount of Xeroform over the suture lines and nail bed that is exposed only. Then placed the nonstick gauze and 10 [place]. Please call tomorrow to schedule follow-up with orthopedics. Complete your full course of antibiotics. I would expect that the pain begins to get markedly better after about 1 week. If you have any concerns of worsening pain or infection please return immediate ly to the emergency department
[2021-02-15 12:46] VITALS: BP 144/84
[2021-02-15] MEDS ORDERED: ONDANSETRON ODT 4 MG TABLET TL STA (12:56)
== END 2021-02-15 13:18 | disposition home or self-care (01) ==
LOC: ED 12:33
DX: S92.422D Displaced fracture of distal phalanx of left great toe, subsequent encounter for fracture with routine healing (principal); W28.XXXD Contact with powered lawn mower, subsequent encounter
CPT/HCPCS: 99281; 99282; Q0162

== ENCOUNTER 2021-02-19 21:12 | Emergency (ER) | payer MEDICAID ==
[2021-02-19 21:33] VITALS: BP 149/89
--- NOTE | 2021-02-19 21:52 | ED Physician Documentation ---
PD HPI LOWER EXT INJURY - Stated complaint Stated Complaint: DRESSING CHANGE - Chief complaint Chief Complaint: Laceration - History obtained from History obtained from: Patient - Additional information Additional information: She has a known open fracture of the left great toe and is being followed by orthopedics. Last dressing change 48 hours ago and the Xeroform has dried onto the toe and she cannot get it off herself. 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: Other : None HEENT: None Psych: Depression Musculoskeletal: None Derm: None - Past Surgical History Past Surgical History: No - Present Medications Home Medications: Ambulatory Orders Medication Instructions Recorded Confirmed HYDROcod/ACETAM 5/325 [[place] 5/325] 1 - 2 tablet PO Q6H PRN #20 tablet 02/14/21 Ibuprofen [Motrin] 600 mg PO Q6H PRN #30 tab 02/14/21 cephALEXin [Keflex] 500 mg PO Q6H #28 02/14/21 - Allergies Allergies/Adverse Reactions: Allergies Allergy/AdvReac Type Severity Reaction Status Date / Time doxycycline Allergy Nausea Verified 02/19/21 21:33 - Social History Does the pt smoke?: No Smoking Status: Never smoker Does the pt drink ETOH?: No Does the pt have substance abuse?: No - Immunizations Immunizations are current?: Yes - POLST Patient has POLST: No PD ED PE NORMAL - Vitals Vital signs reviewed: Yes - General General: Alert and oriented X 3, No acute distress - Extremities Extremities: Other (I was able to remove the current dressing by soaking it with saline, the wound looks like it is healing well without active signs of infection.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, Normal speech Results - Vitals Vitals: Vital Signs - 24 hr 02/19/21 21:30 Temperature 36.4 C L Heart Rate 90 Respiratory 16 Rate Blood Pressure 149/89 H O2 Saturation 100 Oxygen O2 Source Room air PD MEDICAL DECISION MAKING - ED course ED course: Wound was redressed with Xeroform, Telfa, and tube gauze. Departure - Departure Disposition: 01 Home, Self Care Clinical Impression: Open displaced fracture of phalanx of toe of left foot Qualifiers: Encounter type: subsequent encounter Toe: great toe Phalanx: distal Fracture healing: with routine healing Qualified Code(s): S92.422D - Displaced fracture of distal phalanx of left great toe, subsequent encounter for fracture with routine healing Condition: Good Record reviewed to determine appropriate education?: Yes Comments: Continue current wound care plan and follow-up plan although you can go back to every 24 hours for dressing change.
== END 2021-02-19 22:00 | disposition home or self-care (01) ==
LOC: ED 21:12
DX: S92.422D Displaced fracture of distal phalanx of left great toe, subsequent encounter for fracture with routine healing (principal); S92.402D Displaced unspecified fracture of left great toe, subsequent encounter for fracture with routine healing; X58.XXXD Exposure to other specified factors, subsequent encounter
CPT/HCPCS: 99281; 99283

== ENCOUNTER 2021-03-24 17:57 | Outpatient (CLI) | payer MEDICAID ==
--- NOTE | 2021-03-24 16:59 | XRAY Report ---
PROCEDURE: Foot 3 View LT INDICATIONS: DISPLACED FX OF DISTAL PHALANX OF L GREAT TOE TECHNIQUE: 3 views of the foot were acquired. COMPARISON: 02/14/2021. FINDINGS: Bones: Comminuted fracture of the tuft of the first distal phalanx is redemonstrated with decrease in size of the extra fragments suggestive of resorption. No new fractures identified. Soft tissues: There is decreased soft tissue swelling in the great toe. IMPRESSION: 1. Evolving comminuted fracture in the first distal phalanx with resorption of small bony fragments. Reviewed by: Cleve Mayorga MD on 03/24/2021 4:57 PM PDT Approved by: Cleve Mayorga MD on 03/24/2021 4:57 PM PDT Station ID: [id number]
== END 2021-03-24 23:59 | disposition home or self-care (01) ==
LOC: DI.N 17:57
PROVIDERS: ATTEND Physician Assistant
DX: S92.422D Displaced fracture of distal phalanx of left great toe, subsequent encounter for fracture with routine healing (principal)

== ENCOUNTER 2021-12-21 08:00 | Outpatient (CLI) | payer MEDICAID ==
--- NOTE | 2021-12-21 10:36 | XRAY Report ---
PROCEDURE: Foot 3 View LT INDICATIONS: FOOT PAIN TECHNIQUE: 3 views of the foot were acquired. COMPARISON: 03/24/2021 FINDINGS: Bones: Fairly well-corticated fragments involving first distal phalangeal tuft is seen consistent wit h old fracture in this area. No acute fracture or dislocation is seen. Joint spaces are fairly well-p reserved. No suspicious bony lesions. Soft tissues: No tibiotalar joint effusion. Achilles tendon appears normal. IMPRESSION: Old comminuted and minimally displaced fracture involving first distal phalangeal tuft. Anatomic left foot alignment. No acute fracture or dislocation. No gross soft tissue abnormality. Reviewed by: Nils Shields MD on 12/21/2021 10:35 AM PDT Approved by: Nils Shields MD on 12/21/2021 10:35 AM PDT Station ID: [id number]
== END 2021-12-21 23:59 ==
LOC: DI.WOS 08:00
PROVIDERS: ATTEND Orthopaedic Surgery
DX: S92.422D Displaced fracture of distal phalanx of left great toe, subsequent encounter for fracture with routine healing (principal)

== ENCOUNTER 2022-01-13 09:53 | Day surgery (SDC) | payer MEDICAID ==
[2022-01-13 10:29] LABS: HCG UR QUAL NEGATIVE
[2022-01-13] MEDS ORDERED: ACETAMINOPHEN 500 MG TABLET PO ONE (10:41)
[2022-01-13] MEDS ORDERED: CEFAZOLIN SODIUM IN 0.9 % NACL 2 GM/50 ML BAG IV ONE (10:42)
[2022-01-13] MEDS ORDERED: LACTATED RINGERS 1,000 ML IV ONE ×2 (10:43→12:18)
--- NOTE | 2022-01-13 11:05 | ANESTHESIA ---
Pre-Anesthesia VS, & Labs - Diagnosis left great toe nail deformity - Procedure Heifitz procedure Vital Signs: Temp Pulse Resp BP Pulse Ox 36.9 C 67 16 125/70 98 01/13/22 10:11 01/13/22 10:11 01/13/22 10:11 01/13/22 10:11 01/13/22 10:11 Height: 5 ft 7 in Weight (kg): 95.4 kg Body Mass Index: 32.9 BMI Classification: Obese - NPO >8 hours - Is Patient ?: No Home Medications and Allergies Home Medications: Ambulatory Orders No Known Home Medications 01/13/22 No Known Home Medications 01/13/22 Allergies/Adverse Reactions: Allergies Allergy/AdvReac Type Severity Reaction Status Date / Time doxycycline Allergy Nausea Verified 02/19/21 21:33 Anes History & Medical History - Anesthetic History Anesthesia Complications: reports: No previous complications - Medical History Cardiovascular: reports: None Pulmonary: reports: None Gastrointestinal: reports: None Urinary: reports: None Neuro: reports: Headaches, Migraines Musculoskeletal: reports: None Endocrine/Autoimmune: reports: HyPOthyroidism Blood Disorders: reports: None Skin: reports: None Smoking Status: Never smoker History of Cancer?: No Exam General: Alert, Oriented x3 Neck Mobility: Normal Mallampati classification: I Thyromental Distance: greater than 6 cm Respiratory: Lungs clear Cardiovascular: Regular rate Plan Anesthesia Type: MAC Consent for Procedure(s) Verified and Reviewed: Yes Code Status: Attempt Resuscitation ASA classification: 2-Mild systemic disease Is this case an emergency?: No
[2022-01-13] MEDS ORDERED: MIDAZOLAM 2 MG/2 ML VIAL ONE (11:28)
[2022-01-13] MEDS ORDERED: PROPOFOL 200 MG/20 ML VIAL IVP ONE ×2 (11:28→12:01)
[2022-01-13] MEDS ORDERED: fentaNYL 100 MCG/2 ML VIAL ONE (11:28)
[2022-01-13] MEDS ORDERED: LIDOCAINE-MPF 2% 5 ML VIAL ONE (11:28)
[2022-01-13] MEDS ORDERED: LIDOCAINE-MPF 1% 30 ML VIAL ONE (11:30)
[2022-01-13] MEDS ORDERED: BUPIVACAINE 0.25% PF 30 ML VIAL ONE (11:30)
[2022-01-13] MEDS ORDERED: BUPIVACAINE 0.25% PF 30 ML VIAL SUBQ ONE ×2 (11:54)
[2022-01-13] MEDS ORDERED: LIDOCAINE 1% 50 ML MDV SUBQ ONE ×2 (11:54)
[2022-01-13] MEDS ORDERED: oxyCODONE 5 MG TABLET PO PRN (12:05)
[2022-01-13] MEDS ORDERED: KETOROLAC 15 MG/ML VIAL IVP STA (12:05)
--- NOTE | 2022-01-13 12:23 | OPERATIVE REPORT ---
Operative Report - General Procedure Date: 01/13/22 Planned Procedure: Partial nail and matrix ablation tibial margin left great toe Pre-Op Diagnosis: Nail plate deformity tibial margin left great toe Procedure Performed: Partial nail and matrix ablation tibial margin left great toe Post Op Diagnosis: Same as preoperative diagnosis - Procedure Note Primary Surgeon: Vamsi Sadler MD Secondary Surgeon: Mary Mccann PAC Anesthesia Provider: Lindy Fuentes CRNA Anesthesia Technique: Moderate sedation, Regional block Estimated Blood Loss (mL): 1 Indications: This is a 36-year-old woman with a lawnmower injury to her left great toe sustained approximately 11 months ago. She had a fracture of the left great toe distal phalanx in association with soft tissue and nail injury. She is done reasonably well with resolution of her soft tissue problem and bone problem with healing. Her only sequela I is a nail remnant that is painful about the proximal tibial nail margin of the left great toe. This remnant is unstable and is a source of fracture from shoewear causing pain on a regular basis. Her fracture to the great toe is healed well, no clinical deformity. Her skin is intact, no history or sign of infection. Findings: There was a 2 x 4 to 5 mm nail remnant proximal tibial margin of left great toenail. This fragment was partially stable, could be moved readily with a [place] elevator. The remainder of the nail plate was normal. Complications: None - Other Other Information/Narrative: The patient was brought to the operating room table, placed in a supine position. The left lower extremity was prepped and draped in a sterile manner in the usual fashion. Sedation was provided by her nurse cafe assistant. A timeout procedure was performed by the entire operating room team and all were in agreement. A distal metatarsal block was performed using a mixture of 1% Xylocaine and 0.25% Marcaine. This was injected with a 25-gauge needle, a total of approximately 5 cc utilized. A digital tourniquet was applied to the base of left great toe. A 1 cm incision was made in the corner of the proximal tibial nail fold and extended down to bone. The nail remnant was excised. The underlying nail bed and germinal epithelium was excised with sharp and blunt dissection including curette and rongeur. The wound was thoroughly irrigated with normal saline. A single stitch 4-0 nylon was used to close the incision a Xeroform pack was placed distally for removal by patient tomorrow. A gauze dressing with con form was applied to create a toe spica dressing. The tourniquet was released with good return of circulation. She tolerated procedure wellA physician was utilized to help with retraction, wound closure and dressing.
[2022-01-13] MEDS ORDERED: oxyCODONE 5 MG TABLET ONE (12:32)
[2022-01-13] MEDS ORDERED: KETOROLAC 15 MG/ML VIAL ONE (12:33)
[2022-01-13 12:53] VITALS: BP 112/64
--- NOTE | 2022-01-13 15:46 | ANESTHESIA POST OP EVALUATION ---
Anesthesia Post Eval - Post Anesthesia Eval Vitals: Last Vital Signs Temp 36.6 C 01/13/22 12:51 Pulse 60 01/13/22 12:51 Resp 12 01/13/22 12:51 BP 112/64 01/13/22 12:51 Pulse Ox 99 01/13/22 12:51 CV Function Including HR & BP: Stable Pain Control: Satisfactory Nausea & Vomiting: Negative Mental Status: Baseline Respiratory Status: Airway Patent Hydration Status: Satisfactory Anesthesia Complications: None
== END 2022-01-13 09:54 | disposition home or self-care (01) ==
LOC: SDS 09:53
PROVIDERS: ATTEND Orthopaedic Surgery
DX: L60.8 Other nail disorders (principal); E66.9 Obesity, unspecified; Z68.32 Body mass index [BMI] 32.0-32.9, adult
CPT/HCPCS: 11750; 81025; 87635; A9270; J0690; J7120

== ENCOUNTER 2022-04-22 12:35 | Emergency (ER) | payer MEDICAID ==
[2022-04-22 12:43] VITALS: BP 114/85
--- NOTE | 2022-04-22 12:50 | ED Physician Documentation ---
PD HPI UPPER EXT INJURY - Stated complaint Stated Complaint: L FINGER CUT - Chief complaint Chief Complaint: Laceration - History obtained from History obtained from: Patient - History of Present Illness Location: Left, Finger (index) Where injury occurred: Home Timing - onset: Yesterday Timing - duration: Days (1) Timing - details: Abrupt onset (She got bitten the finger by a dog. She states it did hurt quite a bit with a lot of pressure. There is a small laceration volar aspect. She is able to move the finger afterwards but hurts. Has increased redness swelling and pain today.) Worsened by: Moving, Palpating Associated symptoms: Swelling, Discolored (red). 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 HEENT: None Psych: Depression Musculoskeletal: None Derm: None - Past Surgical History Past Surgical History: No - Present Medications Home Medications: Ambulatory Orders Medication Instructions Recorded Confirmed oxyCODONE [Roxicodone] 5 mg PO Q4-6H #6 tablet 01/13/22 Amox/Clav 875/125 [Augmentin] 1 each PO Q12H #14 tablet 04/22/22 Naproxen 500 mg PO BID #15 tab.sr 04/22/22 - Allergies Allergies/Adverse Reactions: Allergies Allergy/AdvReac Type Severity Reaction Status Date / Time doxycycline Allergy Nausea Verified 04/22/22 12:43 - Social History Does the pt smoke?: No Smoking Status: Never smoker Does the pt drink ETOH?: No Does the pt have substance abuse?: No - Immunizations Immunizations are current?: Yes - POLST Patient has POLST: No PD ED PE NORMAL - Vitals Vital signs reviewed: Yes - General General: Alert and oriented X 3, No acute distress, Well developed/nourished - Cardiac Cardiac: RRR, No murmur - Respiratory Respiratory: Clear bilaterally - Derm Derm: Normal color, Warm and dry - Extremities Extremities: Other (Left index finger with some redness and swelling along the middle phalanx and DIP joint area. Small laceration on the volar aspect to fatty tissue. No foreign body. Abrasion on the dorsum aspect. No purulence. Good Cap refill. ) - Neuro Neuro: No motor deficit (Able to flex at the DIP though it hurts. No pain in the forearm.), No sensory deficit Results - Vitals Vitals: Vital Signs - 24 hr 04/22/22 12:39 Temperature 36.0 C L Heart Rate 89 Respiratory 16 Rate Blood Pressure 114/85 H O2 Saturation 100 Oxygen O2 Source Room air - Rads (name of study) finger xray Radiology: Prelim report reviewed (no fractures nor FBs), See rad report PD MEDICAL DECISION MAKING - ED course Complexity details: reviewed results, considered differential (Concern for local bruising and inflammation versus early infection. We will treat presumptively for infection with Augmentin. No pain proximally so does not seem tenosynovitic at this point.), d/w patient Departure - Departure Disposition: 01 Home, Self Care Clinical Impression: Bite wound of left hand with infection Qualifiers: Encounter type: initial encounter Qualified Code(s): S61.452A - Open bite of left hand, initial encounter Condition: Stable Record reviewed to determine appropriate education?: Yes Instructions: ED Bite Dog Follow-Up: Neha Thompson ARNP [Primary Care Provider] - Prescriptions: Amox/Clav 875/125 [Augmentin] 1 each PO Q12H #14 tablet Naproxen 500 mg PO BID #15 tab.sr Comments: Your x-ray appears normal without any fractures or foreign bodies. The wound does look like possible early infection and we should treated with Augmentin twice daily for a week. There likely some element of just inflammation and blood into the tissue causing swelling as well. This would be treated with elevation and rest cool towels and anti-inflammatories. Recheck if not improving well over the next 2 to 3 days. Return if increased redness swelling drainage or the pain extends up into the palm or forearm. I transmitted your prescriptions to [facility] in [place]. Tylenol every add Tylenol every 4-6 hours if needed for pain in addition. Discharge Date/Time: 04/22/22 14:05
[2022-04-22] MEDS ORDERED: IBUPROFEN 600 MG TABLET PO STA (13:13)
[2022-04-22] MEDS ORDERED: AMOX/CLAV 875 MG/125 MG TABLET PO STA (13:13)
--- NOTE | 2022-04-22 14:10 | XRAY Report ---
PROCEDURE: Finger(s) LT INDICATIONS: dogbite left index finger TECHNIQUE: AP hand, 2 views of the 2nd finger(s) acquired. COMPARISON: None FINDINGS: Bones: No fractures or dislocations. No suspicious bony lesions. Soft tissues: No suspicious soft tissue calcifications. IMPRESSION: No acute fracture. No osseous lesion. If symptoms and/or clinical suspicion for pathology continue, f urther assessment with repeat plain films, or advanced imaging (e.g., CT, MRI, or bone scan) is recom mended for further assessment. Reviewed by: Fam Hopkins MD on 04/22/2022 2:09 PM PDT Approved by: Fam Hopkins MD on 04/22/2022 2:09 PM PDT Station ID: [id number]
== END 2022-04-22 14:05 | disposition home or self-care (01) ==
LOC: ED 12:35
DX: S61.211A Laceration without foreign body of left index finger without damage to nail, initial encounter (principal); W54.0XXA Bitten by dog, initial encounter; Y92.009 Unspecified place in unspecified non-institutional (private) residence as the place of occurrence of the external cause
CPT/HCPCS: 73140; 99282; 99283; A9270

== ENCOUNTER 2022-11-18 16:53 | Outpatient (CLI) | payer MEDICAID ==
--- NOTE | 2022-11-19 12:15 | XRAY Report ---
PROCEDURE: Knee 3 View RT INDICATIONS: PREPATELLAR BURSITIS OF RIGHT KNEE TECHNIQUE: 3 views of the right knee(s) were acquired. COMPARISON: None. FINDINGS: Bones: No fractures or dislocations. No patella subluxation. No suspicious bony lesions. Soft tissues: Soft tissue swelling along anterior aspect of patella and patella tendon is seen. No j oint effusion. No suspicious soft tissue calcifications. IMPRESSION: Soft tissue swelling aligned or aspect of patella and patella tendon. Prepatellar bursit is cannot be excluded. No bony erosive changes. No fracture or dislocation. No significant joint effu loraine. Reviewed by: Nils Shields MD on 11/19/2022 12:13 PM PST Approved by: iNls Shields MD on 11/19/2022 12:13 PM PST Station ID: [id number]
== END 2022-11-18 16:54 | disposition home or self-care (01) ==
LOC: DI 16:53
PROVIDERS: ATTEND Physician Assistant Medical
DX: M70.41 Prepatellar bursitis, right knee (principal); R93.6 Abnormal findings on diagnostic imaging of limbs; R93.89 Abnormal findings on diagnostic imaging of other specified body structures

== ENCOUNTER 2022-11-20 08:14 | Emergency (ER) | payer MEDICAID ==
[2022-11-20 08:26] VITALS: BP 172/102
[2022-11-20] MEDS ORDERED: LIDOCAINE 1% 2 ML VIAL SUBQ STA (09:37)
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
[2022-11-20 09:55] LABS: BASOPHILS % (AUTO) 0.4 %; EOSINOPHILS # (AUTO) 0.1 10^3/uL (0.0-0.7); HCT - HEMATOCRIT 44.3 % (37.0-47.0); HGB - HEMOGLOBIN 14.4 g/dL (12.0-16.0); LYMPHOCYTES # (AUTO) 1.7 10^3/uL (1.5-3.5); LYMPHOCYTES % (AUTO) 16.8 %; MEAN CORPUSCULAR HEMOGLOBIN 30.9 pg (27.0-31.0); MEAN CORPUSCULAR HGB CONC 32.5 g/dL (32.0-36.0); MEAN CORPUSCULAR VOLUME 95.1 fL (81.0-99.0); MONOCYTES # (AUTO) 0.5 10^3/uL (0.0-1.0); MONOCYTES % (AUTO) 5.2 %; NEUTROPHILS # (AUTO) 7.8 10^3/uL (1.5-6.6); NEUTROPHILS % (AUTO) 76.2 %; PLT - PLATELET COUNT 206 10^3/uL (130-450); RED BLOOD COUNT 4.66 10^6/uL (4.20-5.40); WHITE BLOOD COUNT 10.2 x10^3/uL (4.8-10.8)
[2022-11-20] MEDS ORDERED: KETOROLAC 30 MG/ML VIAL IVP STA (09:56)
[2022-11-20 10:17] LABS: ALBUMIN/GLOBULIN RATIO 1.4 (1.0-2.2); ALKALINE PHOSPHATASE 52 IU/L (42-121); ALT ALANINE AMINOTRANSFERASE 12 IU/L (10-60); AST ASPARTATE AMINOTRANSFERASE 15 IU/L (10-42); BILIRUBIN,TOTAL 0.7 mg/dL (0.2-1.0); BUN - BLOOD UREA NITROGEN 10 mg/dL (6-20); CARBON DIOXIDE - CO2 24 mmol/L (21-32); CHLORIDE 104 mmol/L (101-111); CREATININE 0.7 mg/dL (0.4-1.0); GFR - MDRD 95 (>89); GLUCOSE 92 mg/dL (70-100); LIPASE 33 U/L (22-51); POTASSIUM 3.4 mmol/L (3.5-5.0); SODIUM 138 mmol/L (135-145); TOTAL PROTEIN 6.9 g/dL (6.7-8.2)
[2022-11-20 10:21] LABS: CRP - C-REACTIVE PROTEIN < 1.0 mg/dL (0-1.0)
[2022-11-20] MEDS ORDERED: ONDANSETRON 4 MG/2 ML VIAL IVP STA (11:06)
[2022-11-20] MEDS ORDERED: HYDROmorphone 1 MG/ML CARPUJECT IVP STA (11:06)
== END 2022-11-20 11:46 | disposition home or self-care (01) ==
LOC: ED 08:14
DX: S80.01XA Contusion of right knee, initial encounter (principal); W22.09XA Striking against other stationary object, initial encounter; Y92.810 Car as the place of occurrence of the external cause
CPT/HCPCS: 36415; 80053; 83690; 85025; 85651; 86140; 87040; 96372; 96374; 96375; 99283; 99284; J1170

== ENCOUNTER 2022-11-25 11:25 | Outpatient (CLI) | payer MEDICAID ==
--- NOTE | 2022-11-25 09:52 | XRAY Report ---
PROCEDURE: Knee 2 View RT INDICATIONS: RIGHT KNEE PAIN TECHNIQUE: 2 views of the right knee(s) were acquired. COMPARISON: X-ray right knee, 11/18/2022. FINDINGS: Bones: No fractures or dislocations. No suspicious bony lesions. Soft tissues: No joint effusion. No suspicious soft tissue calcifications. IMPRESSION: No acute osseous abnormality. Reviewed by: Horacio Garcia MD on 11/25/2022 9:51 AM PST Approved by: Horacio Garcia MD on 11/25/2022 9:51 AM PST Station ID: [id number]
== END 2022-11-25 11:26 | disposition home or self-care (01) ==
LOC: DI.WOS 11:25
PROVIDERS: ATTEND Physician Assistant Surgical
DX: M70.41 Prepatellar bursitis, right knee (principal)

== ENCOUNTER 2023-06-01 11:19 | Outpatient (CLI) | payer MEDICAID ==
--- NOTE | 2023-06-01 16:02 | Ultrasound Report ---
PROCEDURE: Head or Neck Soft Tissue INDICATIONS: NECK FULLNESS TECHNIQUE: Real-time scanning was performed of the thyroid gland, with image documentation. COMPARISON: None FINDINGS: Right: Thyroid lobe measures 4.2 x 1.4 x 1.5 cm, and is homogeneous in echotexture. Left: Thyroid lobe measures 3.0 x 1.7 x 1.3 cm, and is homogenous in echotexture. Isthmus: 1 mm thick. IMPRESSION: Unremarkable exam. No discrete masses. Reviewed by: Kayli Mclaughlin MD on 06/01/2023 4:00 PM PDT Approved by: Kayli Mclaughlin MD on 06/01/2023 4:00 PM PDT Station ID: [id number]
== END 2023-06-01 11:20 | disposition home or self-care (01) ==
LOC: DI 11:19
PROVIDERS: ATTEND Nurse Practitioner Obstetrics & Gynecology
DX: E04.2 Nontoxic multinodular goiter (principal); R53.83 Other fatigue
CPT/HCPCS: 36415; 84439; 84443; 84481; 85025

== ENCOUNTER 2023-06-01 11:21 | Outpatient (CLI) | payer MEDICAID ==
[2023-06-01 11:32] LABS: BASOPHILS % (AUTO) 0.4 %; EOSINOPHILS # (AUTO) 0.1 10^3/uL (0.0-0.7); EOSINOPHILS % (AUTO) 1.4 %; HCT - HEMATOCRIT 45.4 % (37.0-47.0); HGB - HEMOGLOBIN 15.5 g/dL (12.0-16.0); LYMPHOCYTES % (AUTO) 21.7 %; MEAN CORPUSCULAR HEMOGLOBIN 31.6 pg (27.0-31.0); MEAN CORPUSCULAR HGB CONC 34.1 g/dL (32.0-36.0); MEAN CORPUSCULAR VOLUME 92.5 fL (81.0-99.0); MEAN PLATELET VOLUME 10.2 fL (7.9-10.8); MONOCYTES # (AUTO) 0.4 10^3/uL (0.0-1.0); MONOCYTES % (AUTO) 4.7 %; NEUTROPHILS # (AUTO) 6.5 10^3/uL (1.5-6.6); NEUTROPHILS % (AUTO) 71.6 %; PLT - PLATELET COUNT 212 10^3/uL (130-450); RED BLOOD COUNT 4.91 10^6/uL (4.20-5.40); RED CELL DISTRIBUTION WIDTH 12.1 % (12.0-15.0); WHITE BLOOD COUNT 9.1 x10^3/uL (4.8-10.8)
[2023-06-01 12:18] LABS: THYROID STIMULATING HORMONE 2.21 uIU/mL (0.34-5.60)
== END 2023-06-01 11:22 | disposition home or self-care (01) ==
LOC: LAB 11:21
PROVIDERS: ATTEND Nurse Practitioner Obstetrics & Gynecology
DX: R53.83 Other fatigue (principal)
CPT/HCPCS: 36415; 84439; 84443; 84481; 85025

== ENCOUNTER 2023-11-10 11:05 | Outpatient (CLI) | payer MEDICAID ==
[2023-11-10 11:17] LABS: BASOPHILS % (AUTO) 0.4 %; EOSINOPHILS # (AUTO) 0.1 10^3/uL (0.0-0.7); EOSINOPHILS % (AUTO) 0.9 %; HGB - HEMOGLOBIN 14.9 g/dL (12.0-16.0); LYMPHOCYTES # (AUTO) 1.7 10^3/uL (1.5-3.5); LYMPHOCYTES % (AUTO) 19.1 %; MEAN CORPUSCULAR HEMOGLOBIN 31.4 pg (27.0-31.0); MEAN CORPUSCULAR HGB CONC 33.9 g/dL (32.0-36.0); MEAN CORPUSCULAR VOLUME 92.8 fL (81.0-99.0); MEAN PLATELET VOLUME 9.9 fL (7.9-10.8); MONOCYTES # (AUTO) 0.4 10^3/uL (0.0-1.0); MONOCYTES % (AUTO) 4.1 %; NEUTROPHILS # (AUTO) 6.8 10^3/uL (1.5-6.6); NEUTROPHILS % (AUTO) 75.2 %; PLT - PLATELET COUNT 229 10^3/uL (130-450); RED BLOOD COUNT 4.74 10^6/uL (4.20-5.40); RED CELL DISTRIBUTION WIDTH 11.9 % (12.0-15.0); WHITE BLOOD COUNT 9.1 x10^3/uL (4.8-10.8)
[2023-11-10 11:31] LABS: ALBUMIN 4.5 g/dL (3.2-5.5); ALBUMIN/GLOBULIN RATIO 1.9 (1.0-2.2); BILIRUBIN,TOTAL 0.8 mg/dL (0.2-1.0); CALCIUM 9.8 mg/dL (8.5-10.3); CREATININE 0.7 mg/dL (0.6-1.3); POTASSIUM 3.9 mmol/L (3.5-4.5); TOTAL PROTEIN 6.9 g/dL (6.4-8.9)
[2023-11-10 11:48] LABS: THYROID STIMULATING HORMONE 1.58 uIU/mL (0.34-5.60)
--- NOTE | 2023-11-10 19:07 | XRAY Report ---
PROCEDURE: Chest 2V INDICATIONS: ACUTE COUGH TECHNIQUE: 2 views of the chest were obtained. COMPARISON: None. FINDINGS: Surgical changes and devices: None. Lungs and pleura: No pleural effusions or pneumothorax. Lungs are clear. Mediastinum: Mediastinal contours appear normal. Heart size is normal. Bones and chest wall: No suspicious bony lesions. Overlying soft tissues appear unremarkable. IMPRESSION: Normal two-view chest x-ray Reviewed by: Randy Starkey MD on 11/10/2023 6:06 PM [facility] Approved by: Randy Starkey MD on 11/10/2023 6:06 PM [facility] Station ID: [id number]
== END 2023-11-10 11:06 | disposition home or self-care (01) ==
LOC: LAB 11:05
PROVIDERS: ATTEND Nurse Practitioner
DX: R11.0 Nausea (principal); R53.83 Other fatigue; E03.8 Other specified hypothyroidism; R05.1 Acute cough
CPT/HCPCS: 36415; 80050; 84439

== ENCOUNTER 2023-11-11 14:36 | Outpatient (CLI) | payer MEDICAID | END 2023-11-11 14:37 | disposition home or self-care (01) | LOC: RT 14:36 | PROVIDERS: ATTEND Nurse Practitioner | DX: Z53.9 Procedure and treatment not carried out, unspecified reason (principal) ==

== ENCOUNTER 2023-11-12 11:31 | Outpatient (CLI) | payer MEDICAID | END 2023-11-12 11:32 | disposition home or self-care (01) | LOC: RT 11:31 | PROVIDERS: ATTEND Nurse Practitioner | DX: R07.89 Other chest pain (principal) | CPT/HCPCS: 93005 ==

== ENCOUNTER 2024-01-11 14:16 | Outpatient (CLI) | payer MEDICAID ==
--- NOTE | 2024-01-11 19:57 | XRAY Report ---
PROCEDURE: Wrist 3+V RT INDICATIONS: CONTUSION OF RIGHT WRIST TECHNIQUE: 4 views of the wrist were acquired. COMPARISON: None. FINDINGS: Bones: No acute fractures or dislocations. No suspicious bony lesions. Soft tissues: No suspicious soft tissue calcifications. IMPRESSION: No acute osseous abnormality. If there is clinical concern or persistent symptoms, additional imaging such as repeat radiographs or advanced imaging (e.g. CT, MRI) may be helpful for further evaluation. Reviewed by: Eric Morgan MD on 01/11/2024 7:55 PM PDT Approved by: Eric Morgan MD on 01/11/2024 7:55 PM PDT Station ID: [id number]
== END 2024-01-11 14:17 | disposition home or self-care (01) ==
LOC: DI 14:16
PROVIDERS: ATTEND Family Medicine
DX: S60.211A Contusion of right wrist, initial encounter (principal)